=== PATIENT | male | born 1940 | race Caucasian/White ===

== ENCOUNTER 2018-06-15 12:07 | Emergency (ER) | payer OTHER, MEDICARE ==
--- NOTE | 2018-06-15 12:17 | ER Document Report ---
ED General - General Stated Complaint: UNRESPONSIVE Time Seen by Provider: 06/15/18 12:16 - HPI Notes: Patient is a 78-year-old male that presents to the emergency department for chief complaint of altered mental status. Patient was found unresponsive next to his shed. EMS states they got to him at 1130 this morning and he had snoring respirations, pinpoint pupils and a pulse ox of 88% on room air. Patient's said that it had been a few hours since she had seen him which is why she went out to check on him. She believes it was maybe around 8 AM when he was last seen normal. He does have a history of traumatic brain injury in the past. He is not on any anticoagulation. She denied any recent injuries to EMS. Patient's is not currently present and HPI was obtained from EMS. EMS states that he had no response to 1 mg of Narcan. He has no history of pain medications. EMS states that they did start bagging the patient for his snoring respirations and while in route he woke up. He initially had a rightward gaze and then became more oriented with better respirations. No seizure activity was seen. Past Medical History: Hypertension, hyperlipidemia, traumatic brain injury Past Surgical History: Unknown Social History: Smokes cigars Family History: Reviewed and noncontributory for presenting illness Allergies: Reviewed, see documented allergy list. REVIEW OF SYSTEMS: Unable to obtain because of current mental status PHYSICAL EXAMINATION: Vital signs reviewed, nursing noted reviewed. GENERAL: Somnolent HEAD: Atraumatic, normocephalic. EYES: Pupils +1 bilaterally, equal reactivity to light, sclera anicteric, conjunctiva are normal. ENT: nares patent, oropharynx clear without exudates. Dry mucous membranes. NECK: Normal range of motion, supple without lymphadenopathy LUNGS: Breath sounds clear to auscultation bilaterally and equal. No wheezes rales or rhonchi. Shallow respirations, no accessory muscle use HEART: Regular rate and rhythm without murmurs +2/4 bilateral radial and DP pulses. ABDOMEN: Soft, nontender, normoactive bowel sounds. No rebound, guarding, or rigidity. No masses appreciated. No bruit or pulsatile mass. EXTREMITIES: No long bone deformity no pitting or edema. NEUROLOGICAL: GCS 12, NIH=24 SKIN: Warm, Dry, normal turgor, no rashes or lesions noted on exposed skin - Related Data Allergies/Adverse Reactions: No Known Allergies Allergy (Unverified 06/15/18 14:38) Past Medical History - Social History Smoking Status: Current Some Day Smoker Family History: Reviewed & Not Pertinent Physical Exam - Vital signs Vitals: Pulse Ox 90 L 06/15/18 12:09 Course - Re-evaluation Re-evalutation: 06/15/18 12:48 Vitals reviewed. Nursing notes reviewed. Patient arrived with a GCS of 12. Stroke alert was called. His blood sugar is 200. He is oxygenating at 97% on nasal cannula oxygen. Patient had a few second episode of seizure-like activity in CT scan. His eyes deviated right and nursing noted that his head was shaking, during this he was unresponsive to sternal rub. He was given 1 mg IV Ativan. Patient woke up after a few seconds back to his status when he arrived. Patient's is now at bedside stating that he is DNR. She does not wish for him to be intubated. Patient has not moved any extremities while in the ED. I am concerned for status epilepticus. His history of bilateral subdural hematomas after a fall in 2009. He has not had seizures since this episode. Patient's states that he has been suicidal recently. He went out to the shed today and she found him unresponsive with a cigar on his chest. She is concerned that he may have gone out there to try and kill himself. She is not sure if he took any extra doses of his medication. 06/15/18 12:57 Patient reevaluated and is more awake. He is still not moving any extremities. When asked if he would want to be intubated he says no. When I asked if he had a preference on hospital to be transferred to he says I do not care. Transfer initiated to [facility]. 06/15/18 13:15 Patient has continued to wake up. He is now complaining of a headache. Patient was given fentanyl for his headache. He does have a lactic acidosis of 3.1 which is from his repeat seizures. He has no leukocytosis and is not septic, IV antibiotics not indicated. 06/15/18 13:26 Patient's care discussed with Dr. Avila who accepts patient for transfer. Patient has continued to improve in the emergency room. Laboratory 06/15/18 06/15/18 06/15/18 12:12 12:13 12:13 WBC 9.4 RBC 4.40 Hgb 14.6 Hct 40.7 MCV 93 MCH 33.2 MCHC 35.8 RDW 13.3 Plt Count 201 Seg Neutrophils % 67.5 Lymphocytes % 24.0 Monocytes % 6.3 Eosinophils % 1.0 Basophils % 1.2 Absolute Neutrophils 6.4 Absolute Lymphocytes 2.3 Absolute Monocytes 0.6 Absolute Eosinophils 0.1 Absolute Basophils 0.1 PT 13.4 INR 0.97 APTT 25.9 Sodium Potassium Chloride Carbon Dioxide Anion Gap BUN Creatinine Est GFR ( Amer) Est GFR (Non-Af Amer) Glucose POC Glucose 200 H Lactic Acid Calcium Total Bilirubin Direct Bilirubin Neonat Total Bilirubin Neonat Direct Bilirubin Neonat Indirect Bili AST ALT Alkaline Phosphatase Creatine Kinase CK-MB (CK-2) Troponin I Total Protein Albumin 06/15/18 06/15/18 06/15/18 12:13 12:13 12:13 WBC RBC Hgb Hct MCV MCH MCHC RDW Plt Count Seg Neutrophils % Lymphocytes % Monocytes % Eosinophils % Basophils % Absolute Neutrophils Absolute Lymphocytes Absolute Monocytes Absolute Eosinophils Absolute Basophils PT INR APTT Sodium 142.0 Potassium 3.4 L Chloride 108 H Carbon Dioxide 24 Anion Gap 10 BUN 19 Creatinine 0.98 Est GFR ( Amer) > 60 Est GFR (Non-Af Amer) > 60 Glucose 168 H POC Glucose Lactic Acid 3.1 H Calcium 9.0 Total Bilirubin 1.1 Direct Bilirubin 0.3 Neonat Total Bilirubin Not Reportable Neonat Direct Bilirubin Not Reportable Neonat Indirect Bili Not Reportable AST 25 ALT 19 L Alkaline Phosphatase 80 Creatine Kinase 53 L CK-MB (CK-2) 0.82 Troponin I < 0.012 Total Protein 7.1 Albumin 4.2 Chest X-Ray 06/15/18 12:16 IMPRESSION: NO ACUTE RADIOGRAPHIC FINDING IN THE CHEST. Head CT 06/15/18 12:16 IMPRESSION: MILD CHRONIC CHANGES OF ATROPHY AND MICROVASCULAR ISCHEMIA. NO ACUTE PROCESS. EVIDENCE OF ACUTE STROKE: NO. Cervical Spine CT 06/15/18 12:19 IMPRESSION: CHRONIC DEGENERATIVE CHANGES. NO ACUTE FINDINGS. 06/15/18 14:31 Despite 2 L of IV hydration patient's blood pressure has continued to decline. His map is 61. He is still having improvement of his mentation. His GCS is now 15 and he is able to answer questions. He did consent to the central line as well as his who is at bedside. Right IJ placed and dopamine started for hy potension. 06/15/18 16:05 Patient's just came out and notified me that patient told her he had turned the tractor on and close the doors. Carbon monoxide level will be added. 06/15/18 16:28 Patient reevaluated and is much more alert. He is now conversational. His GCS is still 15. His carbon monoxide level is elevated and this was drawn recently. Patient's status epilepticus and symptoms likely related to carbon monoxide poisoning and suicide attempt. He has a patient's multiple recurrent seizures without resolution he is still requiring monitoring at a facility with neurology. He is stable for transfer still. 06/15/18 18:30 Patient again evaluated. He is now on a low-dose of the dobutamine. He is mentating the same. Questions were answered with patient's family. Patient's t ransportation ETA has been moved from 6 PM until 9 PM today. - Vital Signs Vital signs: Temp Pulse Resp BP Pulse Ox 59 L 19 117/63 94 06/15/18 15:00 06/15/18 16:36 06/15/18 16:36 06/15/18 16:36 - Laboratory Result Diagrams: 06/15/18 12:13 06/15/18 12:13 Laboratory results interpreted by me: 06/15/18 06/15/18 06/15/18 12:12 12:13 12:13 ABG pO2 ABG HCO3 ABG Total CO2 ABG O2 Saturation Carboxyhemoglobin Potassium 3.4 L Chloride 108 H Glucose 168 H POC Glucose 200 H Lactic Acid 3.1 H ALT 19 L Creatine Kinase 53 L Urine Protein Urine Urobilinogen Urine Ascorbic Acid 06/15/18 06/15/18 06/15/18 13:08 13:14 16:04 ABG pO2 117.6 H ABG HCO3 19.3 L ABG Total CO2 20.4 L ABG O2 Saturation 98.1 H Carboxyhemoglobin 17.9 H Potassium Chloride Glucose POC Glucose Lactic Acid ALT Creatine Kinase Urine Protein 30 H Urine Urobilinogen 4.0 H Urine Ascorbic Acid 40 H - EKG Interpretation by Me Additional EKG results interpreted by me: 06/15/18 12:57 Interpreted by myself 1240 sinus bradycardia, rate 54, normal axis, prolonged QT at 524, no ST elevation Procedures - Central Line Right Internal jugular Time completed: 14:33 Consent obtained: Yes Central line pre-insertion: Sterile PPE donned, Chloraprep applied Central line lumen type: Triple Anesthetic type: 1% Lidocaine mL's of anesthesia: 4 Ultrasound guided: Yes Line secured with sutures: Yes Central line post-insertion: Blood return from lumens, Biopatch applied, Sutured, Sterile dressing applied, Position confirmed w/ CXR Number of attempts: 1 Complications: No Critical Care Note - Critical Care Note Total time excluding time spent on procedures (mins): 110 Comments: Critical care time 110 exclusive from separate billable procedures for a patient requiring complex medical decision making, and high potential for clinical deterioration. Time spent obtaining history from patient or surrogate, discussions with consultants, development of treatment plan with patient or surrogate, evaluation of patient's response to treatment, examination of patient, ordering and performing treatments and interventions, ordering and review of laboratory studies, re-evaluation of patient's condition, ordering and review of radiographic studies and review of old charts Discharge - Discharge Clinical Impression: Status epilepticus, Lactic acidosis, Suicide attempt Altered mental status Qualifiers: Altered mental status type: coma Coma depth: Jose coma 13-15 Coma timing: in the field (EMT or ambulance) Qualified Code(s): R40.2411 - Aguirre coma scale score 13-15, in the field [EMT or ambulance] Carbon monoxide poisoning Qualifiers: Encounter type: initial encounter Injury intent: intentional self-harm Qualified Code(s): T58.92XA - Toxic effect of carbon monoxide from unspecified source, intentional self-harm, initial encounter Condition: Stable Disposition: [facility] Referrals: LOCALMD,NO [Primary Care Provider] - Follow up as needed ED NIH Stroke Scale - NIH Stroke Scale When completed:: Before Alteplase *: 1. NIH scale should be completed with appropriate accompanying assessment tools. *: 2. The NIH should reflect what the patient is capable of doing and should not be coached by the clinician. 1a. Level of Consciousness: 0=Alert;keenly responsive -: 1=Drowsy -: 2=Obtunded -: 3=Coma/unresponsive or reflex to noxious stimuli. 1a. Responses: 1 1b. Orientation Questions: a. What month is it? -: b. How old are you? -: 0=Answers both questions correctly. -: 1=Answers one question correctly or patient is intubated or has orotracheal trauma. -: 2=Answers neither question correctly. 1b. Responses: 2 1c. Response to commands: a. Open and close eyes? -: b. Home Stereo Equipment Installer and release hand? -: Credit is given despite weakness. Demonstration of task is permitted. Substitute command if hands cannot be used. -: 0=Performs both tasks correctly -: 1=Performs one task correctly -: 2=Performs neither task correctly 1c. Responses: 2 2. Gaze: Establish eye contact and instruct patient to "Follow my finger" -: 0=Normal -: 1=Partial gaze palsy. Gaze is abnormal in one or both eyes, but where forced deviation or total gaze paresis is not present. -: 2=Forced deviation or total gaze paresis. 2. Responses: 0 3. Visual Busch: Sees fingers in all four quadrants. -: 0=No visual loss. -: 1=Partial hemianopsia. -: 2=Complete hemianopsia. -: 3=Bilateral hemianopsia (including Cortical blindness) 3. Responses: 0 4. Facial Movement: Instruct patient to: -: a. Show me your teeth -: b. Raise your eyebrows -: c. Close your eyes -: d. Smile -: 0=Normal symmetrical movement -: 1=Minor paralysis (flattened nasolabial fold, asymmetry on smiling). -: 2=Partial paralysis (total or near total paralysis of lower face). -: 3=Complete paralysis of upper and lower face 4. Responses: 0 5. Motor functions (left arm): Alternate sides and extend each arm with palms down (90 degrees if sitting or 45 degrees for supine). -: 0=No drift;limb holds for full 10 seconds. -: 1=Drift; limb holds but drifts down before full 10 seconds, but does not hit bed. -: 2=Some effort against gravity; limb cannot get to or maintain position. -: 3=No effort against gravity; limb falls. -: 4=No movement. -: UN=Amputation, joint fusion, explain in comments. 5. Responses (left arm): 4 5. Motor Functions (right arm): Alternate sides and extend each arm with palms down (90 degrees if sitting or 45 degrees for supine). -: 0=No drift;limb holds for full 10 seconds. -: 1=Drift; limb holds but drifts down before full 10 seconds, but does not hit bed. -: 2=Some effort against gravity; limb cannot get to or maintain position. -: 3=No effort against gravity; limb falls. -: 4=No movement. -: UN=Amputation, joint fusion, explain in comments. 5. Responses (right arm): 4 6. Motor Functions (left leg): With patient lying supine, alternate sides and extend each leg (30 degrees always while supine). -: 0=No drift, leg holds position for full 5 seconds -: 1=Drift; leg falls before full 5 seconds but does not hit bed. -: 2=Some effort against gravity, leg falls to bed but some effort against gravity. -: 3=No effort against gravity, leg falls to bed immediately. -: 4=No movement. -: UN=Amputation, joint fusion; explain in comments. 6. Responses (left leg): 4 6. Motor Functions (right leg): With patient lying supine, alternate sides and extend each leg (30 degrees always while supine). -: 0=No drift, leg holds position for full 5 seconds -: 1=Drift; leg falls before full 5 seconds but does not hit bed. -: 2=Some effort against gravity, leg falls to bed but some effort against gravity. -: 3=No effort against gravity, leg falls to bed immediately. -: 4=No movement. -: UN=Amputation, joint fusion; explain in comments. 6. Responses (right leg): 4 7. Limb Ataxia: With eyes open instruct patient to: -: a. "Touch your finger to your nose". -: b. "Touch your heel to your lynch" -: 0=Absent -: 1=Present in one limb. -: 2=Present in two limbs. -: UN=Amputation or joint fusion; explain in comments. 7. Responses: UN 8. Sensory: Test sensation using pinprick or noxious stimuli. Test as many body parts as possible. -: 0=Normal;no sensory loss -: 1=Mile to moderate sensory loss (patient feels pin prick but is less sharp on affected side). -: 2=Severe or total sensory loss. 8. Responses: 1 9. Best Language: Instruct patient to: -: a. "Describe what you see in this picture." -: b. "Name the items in this picture." -: c. "Read these sentences." -: 0=No aphasia, normal -: 1=Mild to moderate aphasia. -: 2=Severe aphasia -: 3=Mute, global aphasia, no usable speech or auditory comprehension. 9. Responses: 2 10. Articulation, Dysarthia: Instruct patient to: -: "Read these words" or "Repeat these words" -: 0=Normal -: 1=Mild to moderate; patient may slur some words but can be understood without difficulty. -: 2=Severe; patients speech so slurred as to be unintelligible in the absence of dysphasia. -: UN=Intubated or other physical barrier, explain in comments. 10. Responses: UN 11. Extinction or inattention: 0=No abnormality -: 1= Visual, tactile, auditory, spatial, or personal inattention or extinction to bilateral simulation in one or the sensory modalities. -: 2=Profound issa-inattention or issa-inattention to more than one modality; does not recognize own hand. 11. Responses: 0 Total Score: 24
[2018-06-15 12:27] LABS: INTERNATIONAL RATION (INR) 0.97
[2018-06-15 12:28] LABS: PARTIAL THROMBOPLASTIN TIME 25.9 SEC (23.5-35.8)
[2018-06-15 12:31] LABS: ABSOLUTE BASOPHILS # (AUTO) 0.1 10^3/uL (0.0-0.2); ABSOLUTE EOSINOPHILS # (AUTO) 0.1 10^3/uL (0.0-0.6); ABSOLUTE LYMPHOCYTES (AUTO) 2.3 10^3/uL (0.5-4.7); ABSOLUTE MONOCYTES (AUTO) 0.6 10^3/uL (0.1-1.4); ABSOLUTE NEUT (AUTO) 6.4 10^3/uL (1.7-8.2); BASOPHILS % (AUTO) 1.2 % (0-2); HEMATOCRIT 40.7 % (37.9-51.0); HEMOGLOBIN 14.6 g/dL (13.5-17.0); MEAN CORPUSCULAR HEMOGLOBIN 33.2 pg (27.0-33.4); MEAN CORPUSCULAR HGB CONC 35.8 g/dL (32.0-36.0); MEAN CORPUSCULAR VOLUME 93 fl (80-97); MONOCYTES % (AUTO) 6.3 % (3-13); PLATELET COUNT 201 10^3/uL (150-450); RED CELL DISTRIBUTION WIDTH 13.3 % (11.5-14.0); SEGMENTED NEUTROPHILS % (AUTO) 67.5 % (42-78); TOTAL CELLS COUNTED % (AUTO) 100 %; WHITE BLOOD COUNT 9.4 10^3/uL (4.0-10.5)
[2018-06-15 12:32] LABS: PROTHROMBIN TIME 13.4 SEC (11.4-15.4)
--- NOTE | 2018-06-15 12:49 | RADIOLOGY REPORT (SQ) ---
EXAM DESCRIPTION: CT HEAD WITHOUT COMPLETED DATE/TIME: 06/15/2018 12:38 pm REASON FOR STUDY: mental status change COMPARISON: None. TECHNIQUE: Axial images acquired through the brain without intravenous contrast. Images reviewed wi th bone, brain and subdural windows. Additional sagittal and coronal reconstructions were generated. Images stored on PACS. All CT scanners at this facility use dose modulation, iterative reconstruction, and/or weight based d osing when appropriate to reduce radiation dose to as low as reasonably achievable (ALARA). [facility]: Dose Right [facility]: CareDose [facility]: Dose Right [facility]: Teradose 4D [facility]: nanoRETE RADIATION DOSE: CT Rad equipment meets quality standard of care and radiation dose reduction techniq ues were employed. CTDIvol: 53.2 mGy. DLP: 1070 mGy-cm. mGy. LIMITATIONS: None. FINDINGS: VENTRICLES: Prominent. CEREBRUM: No masses. No hemorrhage. No midline shift. Areas of low density in the white matter mos t likely due to chronic micro-vascular ischemic change. No evidence for acute infarction. CEREBELLUM: No masses. No hemorrhage. No alteration of density. No evidence for acute infarction. EXTRAAXIAL SPACES: Mild age-related involutional change. No fluid collections. No masses. ORBITS AND GLOBE: No intra- or extraconal masses. Normal contour of globe without masses. CALVARIUM: Old radha holes. PARANASAL SINUSES: No fluid or mucosal thickening. SOFT TISSUES: No mass or hematoma. OTHER: No other significant finding. IMPRESSION: MILD CHRONIC CHANGES OF ATROPHY AND MICROVASCULAR ISCHEMIA. NO ACUTE PROCESS. EVIDENCE OF ACUTE STROKE: NO. COMMENT: Pertinent positive or negative findings of the imaging study reported as a CRITICAL EXAM cynthia SLADE KINNEY at12:42 on 06/15/2018. Category of Critical Exam: Stroke alert TECHNICAL DOCUMENTATION: JOB ID: [id number] Quality ID # [id number]: Final reports with documentation of one or more dose reduction techniques (e.g., Au tomated exposure control, adjustment of the mA and/or kV according to patient size, use of iterative reconstruction technique) 2010 ID [employer]- All Rights Reserved Reading location - IP/workstation name: [email or web address]
--- NOTE | 2018-06-15 12:50 | RADIOLOGY REPORT (SQ) ---
EXAM DESCRIPTION: CT CERVICAL SPINE WITHOUT COMPLETED DATE/TIME: 06/15/2018 12:38 pm REASON FOR STUDY: trauma COMPARISON: None. TECHNIQUE: Axial images acquired through the cervical spine without intravenous contrast. Images re viewed with lung, soft tissue and bone windows. Reconstructed coronal and sagittal MPR images review ed. Images stored on PACS. All CT scanners at this facility use dose modulation, iterative reconstruction, and/or weight based d osing when appropriate to reduce radiation dose to as low as reasonably achievable (ALARA). [facility]: Dose Right [facility]: CareDose [facility]: Dose Right [facility]: Teradose 4D [facility]: TidePool RADIATION DOSE: CT Rad equipment meets quality standard of care and radiation dose reduction techniq ues were employed. CTDIvol: 20.5 mGy. DLP: 471 mGy-cm. mGy. LIMITATIONS: None. FINDINGS: ALIGNMENT: Anatomic. MINERALIZATION: Normal. VERTEBRAL BODIES: No fractures or dislocation. DISCS: Multilevel disc space narrowing with osteophytes. FACETS, LATERAL MASSES, POSTERIOR ELEMENTS: Facet arthropathy. No fractures. No dislocation. No ac garcia findings. HARDWARE: None in the spine. VISUALIZED RIBS: No fractures. LUNG APICES AND SOFT TISSUES: No significant or acute findings. OTHER: No other significant finding. IMPRESSION: CHRONIC DEGENERATIVE CHANGES. NO ACUTE FINDINGS. TECHNICAL DOCUMENTATION: JOB ID: [id number] Quality ID # [id number]: Final reports with documentation of one or more dose reduction techniques (e.g., Au tomated exposure control, adjustment of the mA and/or kV according to patient size, use of iterative reconstruction technique) 2010 [employer]- All Rights Reserved Reading location - IP/workstation name: [email or web address]
[2018-06-15 12:56] LABS: ALANINE AMINOTRANSFERASE 19 U/L (21-72); ALBUMIN 4.2 g/dL (3.5-5.0); ALKALINE PHOSPHATASE 80 U/L (38-126); ANION GAP 10 (5-19); ASPARTATE AMINO TRANSFERASE 25 U/L (17-59); BILIRUBIN,DIRECT 0.3 mg/dL (0.0-0.4); BILIRUBIN,TOTAL 1.1 mg/dL (0.2-1.3); BLOOD UREA NITROGEN 19 mg/dL (7-20); CARBON DIOXIDE 24 mmol/L (22-30); CHLORIDE 108 mmol/L (98-107); CREATINE KINASE 53 U/L (55-170); GLUCOSE 168 mg/dL (75-110); POTASSIUM 3.4 mmol/L (3.6-5.0); TOTAL PROTEIN 7.1 g/dL (6.3-8.2)
[2018-06-15] MEDS ORDERED: LEVETIRACETAM 1000 MG/NACL-ISO 1,000 MG/100 ML RTUPB IV ONE (12:56)
[2018-06-15 13:07] LABS: CREATINE KINASE MB 0.82 ng/mL (<4.55)
[2018-06-15 13:08] LABS: TROPONIN I < 0.012 ng/mL
--- NOTE | 2018-06-15 13:09 | RADIOLOGY REPORT (SQ) ---
EXAM DESCRIPTION: CHEST SINGLE VIEW COMPLETED DATE/TIME: 06/15/2018 12:49 pm REASON FOR STUDY: mental status change COMPARISON: None. EXAM PARAMETERS: NUMBER OF VIEWS: One view. TECHNIQUE: Single frontal radiographic view of the chest acquired. RADIATION DOSE: NA LIMITATIONS: None. FINDINGS: LUNGS AND PLEURA: No opacities, masses or pneumothorax. No pleural effusion. MEDIASTINUM AND HILAR STRUCTURES: No masses. Contour normal. HEART AND VASCULAR STRUCTURES: Heart normal in size. Normal vasculature. BONES: No acute findings. HARDWARE: None in the chest. OTHER: No other significant finding. IMPRESSION: NO ACUTE RADIOGRAPHIC FINDING IN THE CHEST. TECHNICAL DOCUMENTATION: JOB ID: [id number] [employer]- All Rights Reserved Reading location - IP/workstation name: [email or web address]
[2018-06-15] MEDS ORDERED: NORMAL SALINE 1000 ML 1,000 ML IV ONE ×2 (13:13→13:52)
[2018-06-15] MEDS ORDERED: FENTANYL CITRATE INJ/PF 100 MCG/2 ML AMPUL IV ONE (13:14)
[2018-06-15 13:34] LABS: ARTERIAL BLOOD BASE EXCESS -5.6 mmol/L; ARTERIAL BLOOD H2CO3 1.08 mmol/L (1.05-1.35); ARTERIAL BLOOD HCO3 19.3 mmol/L (20-24); ARTERIAL BLOOD O2 SATURATION 98.1 % (94-98); ARTERIAL BLOOD PCO2 35.9 mmHg (35-45); ARTERIAL BLOOD PH 7.35 (7.35-7.45); ARTERIAL BLOOD PO2 117.6 mmHg (80-100); ARTERIAL BLOOD TOTAL CO2 20.4 mmol/L (23-27)
[2018-06-15 13:34] LABS: APPEARANCE,URINE SLIGHTLY-CLOUDY; BILIRUBIN,URINE NEGATIVE (NEGATIVE); GLUCOSE, URINE NEGATIVE (NEGATIVE); KETONES,URINE NEGATIVE (NEGATIVE); LEUKOCYTE ESTERASE,URINE NEGATIVE (NEGATIVE); NITRITE,URINE NEGATIVE (NEGATIVE); PROTEIN,URINE 30 mg/dL (NEGATIVE); URINE SPECIFIC GRAVITY 1.024
[2018-06-15 13:35] LABS: ARTERIAL BLOOD FIO2 6L
[2018-06-15 13:35] LABS: COLOR,URINE DARK YELLOW
[2018-06-15] MEDS ORDERED: DOPAMINE HCL/DEXTROSE 5%-WATER 800 MG/250 ML RTUINJ IV PRN (14:31)
[2018-06-15] MEDS ORDERED: LORAZEPAM INJ 2 MG/1 ML VIAL IV ONE (14:42)
--- NOTE | 2018-06-15 15:09 | RADIOLOGY REPORT (SQ) ---
EXAM DESCRIPTION: CHEST SINGLE VIEW COMPLETED DATE/TIME: 06/15/2018 2:51 pm REASON FOR STUDY: right IJ COMPARISON: 06/15/2018 EXAM PARAMETERS: NUMBER OF VIEWS: One view. TECHNIQUE: Single frontal radiographic view of the chest acquired. RADIATION DOSE: NA LIMITATIONS: None. FINDINGS: LUNGS AND PLEURA: No opacities, masses or pneumothorax. No pleural effusion. MEDIASTINUM AND HILAR STRUCTURES: No masses. Contour normal. HEART AND VASCULAR STRUCTURES: Heart normal in size. Normal vasculature. BONES: No acute findings. HARDWARE: None in the chest. OTHER: Interval placement of right neck vascular catheter, tip projecting over the right atrium. IMPRESSION: Interval placement of right neck vascular catheter, tip projecting over the right atrium . Consider slight retraction for optimal positioning near the superior cavoatrial junction. No pneu mothorax or pleural effusion. TECHNICAL DOCUMENTATION: JOB ID: [id number] [employer]- All Rights Reserved Reading location - IP/workstation name: [facility]
--- NOTE | 2018-06-15 17:25 | EKG REPORT ---
SEVERITY:- ABNORMAL ECG - SINUS RHYTHM PROBABLE POSTERIOR INFARCT NONSPECIFIC T ABNORMALITIES, LATERAL LEADS PROLONGED QT INTERVAL : Confirmed by: Kamala Meehan MD 15-Jun-2018 17:23:52
[2018-06-15 20:36] VITALS: BP 128/79
== END 2018-06-15 21:20 | disposition short-term general hospital (02) ==
LOC: ER 12:07
PROC: 05HM33Z Insertion of Infusion Device into Right Internal Jugular Vein, Percutaneous Approach (ICD-10-PCS; principal; 2018-06-15)
DX: T58.92XA Toxic effect of carbon monoxide from unspecified source, intentional self-harm, initial encounter (principal); R40.2411 Glasgow coma scale score 13-15, in the field [EMT or ambulance]; G40.901 Epilepsy, unspecified, not intractable, with status epilepticus; E87.2 Acidosis; R29.724 NIHSS score 24; F17.200 Nicotine dependence, unspecified, uncomplicated
CPT/HCPCS: 36556; 93005; 99291; 99292; 96361; 96375; 96365; 36415; 87040; 82375; 82553; 82962; 82803; 82550; 85025; 85610; 85730; 80053; 81001; 84484; 83605; 71045; 70450; 72125; 93010; J1265; J3010; J2060; J7030; J1953